=== PATIENT | female | born 1940 | race Caucasian/White ===

== ENCOUNTER 2017-09-11 12:29 | Outpatient (CLI) | payer MEDICARE ==
--- NOTE | 2017-09-11 15:29 | MRI ---
MRI CERVICAL SPINE WITHOUT CONTRAST: Date: 09/11/17 Multiplanar, multisequential imaging of cervical spine obtained. HISTORY: Neck pain since fall 2 years ago. FINDINGS: The cervical vertebra maintain normal height and alignment. Disc spaces are preserved. Vertebral body signal is normal. Very mild disc bulge and spondylosis seen at C3-4, C4-5, C5-6, and C6-7 levels. These findings are sl ightly more pronounced at C5-6 and C6-7 where these changes flatten the thecal sac and efface the ant erior subarachnoid space at both of these levels. There is no evidence of cord impingement. No eviden ce of significant foraminal stenosis or encroachment. Cord signal is normal. IMPRESSION: Disc bulge and spondylitic change at C5-6 and C6-7 flatten the thecal sac and efface the anterior sub arachnoid space. These changes do not significantly impinge on the cord and there is no evidence of c entral canal stenosis. POS: [facility]
--- NOTE | 2017-09-11 15:50 | MRI ---
MRI THORACIC SPINE WITHOUT CONTRAST: Date: 09/11/17 Multiplanar, multisequential imaging of thoracic spine obtained. HISTORY: Fall 2 years ago with persistent upper back pain. FINDINGS: The thoracic vertebra maintain normal height and alignment. Thoracic vertebral bodies exhibit normal signal. There is no evidence of depression deformity. The disc spaces are preserved. There are a few scattered vertebral body hemangioma noted. A large vertebral body hemangioma at T12 is seen. There is evidence of very mild disc bulge at the T2-T3 level which flattens the thecal sac but does n ot significantly impinge on the cord. No other significant disc bulge or disc protrusion seen at any of the thoracic levels. There is no evidence of central canal stenosis. The cord signal appears unrem arkable. IMPRESSION: Unremarkable MRI of thoracic spine with incidental findings noted above. POS: [facility]
--- NOTE | 2017-09-11 15:51 | MRI ---
LUMBAR SPINE MRI NONCONTRAST 09/11/17 CLINICAL HISTORY: Fall two years prior with bilateral pain of the low thoracic and lumbar spine. FINDINGS: There is no acute marrow edema of the lumbar spine. There is an intrinsic T1 hyperintensity of the T1 2 vertebral body compatible with an intraosseous hemangioma. Small Schmorl's node involves inferior L 2 end plate. There is a nonspecific focus of low T1 and subtle increased T2 signal involving the ante rior superior aspect of the L3 vertebral body to the left of midline. Comparing to 07/23/17 CT exam, no discernible CT finding is visualized. There is mild multilevel disc bulge formation throughout the lumbar spine with mild ventral CSF effac ement of the L1-2, L3-4, and L5-S1 levels. At L2-3, there is a left foraminal disc protrusion with sl ight inferior migration of disc material indicating extrusion, as well. This does impinge upon the tr aversing left L3 nerve root within the subarticular zone and narrows the medial aspect of the left ne ural foramen thus crowding the left L2 nerve root. There is mild to moderate central canal narrowing with crowding of the bilateral traversing L5 nerve roots of the L4-5 level as result of broad based disc bulge. There is a small annular fissure of the posterior central zone. The conus medullaris terminates at the T12-L1 level. IMPRESSION: 1. No acute compression fracture or subluxation. 2. Indeterminate single alteration of the anterior L3 vertebral body. This is not discerned on r ecent, comparison lumbar spine CT. This may relate to an typical hemangioma. A dedicated bone scan ma y be performed to exclude an aggressive process. 3. Disc protrusion with superimposed inferior extrusion of the medial left foraminal zone of L2- 3 with resultant impingement/crowding of the left traversing L3 and exiting left L2 nerve roots. POS: [facility]
--- NOTE | 2017-09-11 15:55 | RAD ---
LUMBAR SPINE 4 VIEWS: Date: 09/11/17 INDICATION: Fall with low back pain. FINDINGS: There is accentuated lumbar lordosis. No compression fracture. Right convexity curvature of lumbar sp ine present. Flexion and extension views performed which reveal no obvious translational motion. Goodman llic stent is seen at the right iliac region. Bone island is seen at the L2 vertebral segment. IMPRESSION: No acute osseous abnormality. POS: [facility]
--- NOTE | 2017-09-11 16:40 | RAD ---
CERVICAL SPINE RADIOGRAPH SERIES FOUR VIEWS 09/11/17 INDICATION: Fall two years prior with neck pain and bilateral shoulder pain. FINDINGS: Flexion and extension and neutral lateral views are performed which reveal no obvious translational m otion. There is mild to moderate multilevel degenerative change throughout the cervical spine. Genera lized mild osseous demineralization is present. Sternal sutures are seen at the imaged upper chest. P revertebral soft tissue stripe is normal. IMPRESSION: No abnormal translational motion within the cervical spine. There is mild to moderate multilevel degenerative change and osseous demineralization. POS: [facility]
== END 2017-09-11 12:30 | disposition home or self-care (01) ==
LOC: SCSMRI 12:29
PROVIDERS: ATTEND Surgery
DX: M47.22 Other spondylosis with radiculopathy, cervical region (principal); M51.16 Intervertebral disc disorders with radiculopathy, lumbar region; M54.14 Radiculopathy, thoracic region
CPT/HCPCS: 72050; 72110; 72141; 72146; 72148

== ENCOUNTER 2019-01-12 16:50 | Outpatient (CLI) | payer MEDICARE ==
[2019-01-12 17:39] LABS: #Basophils 0.1 thou/uL (0.0-0.2); #Eosinphils 0.1 thou/uL (0.0-0.7); #Lymphocytes 2.8 thou/uL (1.20-3.40); #Monocytes 1.4 thou/uL (0.11-0.59); %Basophils 0.5 % (0.0-1.0); %Eosinophils 0.8 % (0.0-10.0); %Lymphocytes 19.2 % (21.0-51.0); %Monocytes 9.7 % (0.0-10.0); %Neutrophils 69.8 % (42.0-75.0); Hemoglobin 14.9 g/dL (12.0-16.0); Mean Corpuscular HGB CONC 33.6 g/dL (32.0-36.0); Mean Corpuscular Volume 86.4 fL (78.0-98.0); Mean Platelet Volume 6.9 fL (7.4-10.4); Platelet Count 403 thou/uL (130-400); RBC Distribution Width 11.9 % (11.5-14.5); Red Blood Cell (RBC) Count 5.13 mill/uL (4.20-5.40); White Blood Cell (WBC) Count 14.4 thou/uL (4.8-10.8)
[2019-01-12 18:03] LABS: ALT (SGPT) 17 U/L (8-55); AST (SGOT) 13 U/L (5-34); Albumin 4.4 g/dL (3.4-4.8); Alkaline Phosphatase 59 U/L (40-150); Anion Gap 16 mmol/L (10-20); BUN (Urea Nitrogen) 20 mg/dL (9.8-20.1); Bilirubin, Total 0.4 mg/dL (0.2-1.2); Calc. Creatinine Clearance 0 mL/min (70-130); Calcium 10.1 mg/dL (7.8-10.44); Carbon Dioxide 25 mmol/L (23-31); Chloride 99 mmol/L (98-107); Estimated GFR-MDRD 69; Globulin 2.6 g/dL (2.4-3.5); Glucose 96 mg/dL (83-110); Potassium 4.7 mmol/L (3.5-5.1); Sodium 135 mmol/L (136-145)
== END 2019-01-12 16:51 | disposition home or self-care (01) ==
LOC: LABBT 16:50
PROVIDERS: ATTEND Surgery
DX: Z01.818 Encounter for other preprocedural examination (principal); D17.79 Benign lipomatous neoplasm of other sites
CPT/HCPCS: 80053; 85025; 93005; 93010

== ENCOUNTER 2019-01-21 07:15 | Day surgery (SDC) | payer MEDICARE ==
[2019-01-12 17:17] VITALS: BMI 28.6
[2019-01-21] MEDS ORDERED: Levofloxacin 500 mg/D5W 100 ml Premix Bag ONE (08:56)
[2019-01-21] MEDS ORDERED: Bupivacaine/Epinephrine 0.25% 30 ML VIAL ONE (09:00)
[2019-01-21] MEDS ORDERED: Fentanyl 100 MCG/2 ML VIAL ONE (09:06)
[2019-01-21] MEDS ORDERED: Promethazine HCl 25 MG/ML VIAL ONE (11:30)
--- NOTE | 2019-01-21 11:53 | OP ---
DATE OF PROCEDURE: 01/21/2019 PREOPERATIVE DIAGNOSES: 1. Lipoma of back. 2. Sebaceous cyst of neck. INDICATIONS: This is a 79-year-old female with enlarging soft tissue mass of the upper midback and also a small sebaceous cyst that seems to be bothering here. FINDINGS: A 6 x 6 x 2 cm multilobular lipoma of the upper midback. A 5-mm sebaceous cyst of the posterior neck. DESCRIPTION OF PROCEDURE: After informed consent was obtained, the patient was taken to the operating room and given general endotracheal anesthesia. She was placed in the prone position. Her neck and back were prepped and draped in usual fashion. Local anesthesia was infiltrated subcutaneously and deep. An upper midline back incision was performed and subcu divided sharply. The capsule was opened and digital palpation was used to try and dislodge the lobules out each of the little pockets, some of the pockets had to be opened up with electrocautery. Eventually, circumferentially, it was able to free it up and excise it. Hemostasis was achieved with electrocautery. The wound was thoroughly irrigated with saline. Subcu was reapproximated with interrupted 3-0 Vicryl and the skin closed with a running subcuticular 4-0 Rapide. Steri-Strips applied. Then, an elliptical incision transversely on the mid neck was performed posteriorly and the sebaceous cyst excised. Hemostasis was achieved with electrocautery. The skin closed with a 4-0 Rapide. Dermabond applied there. A compression bandage was applied to the back. The patient tolerated the procedure well, transferred to Recovery in good condition. Sponge and needle count verified correct x2. Job ID: [id number]
[2019-01-21] MEDS ORDERED: traMADol HCl 50 MG TAB ONE (12:01)
[2019-01-21] MEDS ORDERED: Glycopyrrolate 0.2 MG/ML 5 ML SYRINGE ONE (16:27)
[2019-01-21] MEDS ORDERED: Lidocaine 1% PF 5 ML VIAL ONE (16:27)
[2019-01-21] MEDS ORDERED: Ondansetron PF 4 MG/2 ML Vial ONE (16:27)
[2019-01-21] MEDS ORDERED: PROPOFOL 200 MG/20 ML VIAL ONE (16:27)
[2019-01-21] MEDS ORDERED: Rocuronium Bromide 10 MG/ML (10ML VIAL) ONE (16:27)
--- NOTE | 2019-01-28 06:16 | PQF ---
[facility] POST DISCHARGE CLINICAL DOCUMENTATION IMPROVEMENT CLARIFICATION FORM l Todays Date: 01/28/19 l Patients Name KENTRELL GARCIA l l Admit Date 01/21/19 l Disch Date 01/21/19 It Architecture Analyst Name Sudheer Khan Email: [email or web address] Cell: [phone] To be completed by It Architecture Analyst: Present Clinical Indicators - Signs / Symptoms Results and Location in Medical Record [ ] Documentation of: [ ] [ ] Documentation of: [ ] [ ] Documentation of: [ ] [ ] Documentation of: [ ] [ ] Risks [ ] [ ] [ ] Treatment [ ] Epidermal Inclusion Cyst of neck Query for excised margins of 5 mm epidermal inclusion cyst [ ] [ ] To be completed by Physician: LISA GERBER The documentation in this patients record requires clarification to ensure coding compliance and accuracy. Check the appropriate box and include in your discharge summary. [ ] [ ] [ ] [ ] Please check this box if this does not apply to this patient [ ] Unable to determine [ ] Other diagnosis: Review the following information and exercise your independent professional judgment in responding to the clarification. Based upon the clinical findings, risk factors, and treatment, please clarify if you are treating one of the above probable or suspected diagnoses. Physician Signature: Date Time MTDD
== END 2019-01-21 12:42 | disposition home or self-care (01) ==
LOC: SDC 07:15
PROVIDERS: ATTEND Surgery
PROC: 0JB70ZZ Excision of Back Subcutaneous Tissue and Fascia, Open Approach (ICD-10-PCS; principal; 2019-01-21)
PROC: 0JB40ZZ Excision of Right Neck Subcutaneous Tissue and Fascia, Open Approach (ICD-10-PCS; 2019-01-21)
DX: D17.1 Benign lipomatous neoplasm of skin and subcutaneous tissue of trunk (principal); L72.0 Epidermal cyst; M81.0 Age-related osteoporosis without current pathological fracture; K21.9 Gastro-esophageal reflux disease without esophagitis; K52.9 Noninfective gastroenteritis and colitis, unspecified; Z79.82 Long term (current) use of aspirin; Z79.899 Other long term (current) drug therapy; Z88.0 Allergy status to penicillin; Z88.5 Allergy status to narcotic agent; Z88.8 Allergy status to other drugs, medicaments and biological substances; Z91.013 Allergy to seafood; Z91.030 Bee allergy status; Z91.038 Other insect allergy status
CPT/HCPCS: 88304; J1956; J2001; J2405; J2550; J2704; J3010